=== PATIENT | male | born 1985 | race Asian ===

== ENCOUNTER 2017-04-18 18:49 | Emergency (ER) | payer MEDICAID ==
[~2017-04-18] VITALS: Ht 165.1 cm; Wt 81.8 kg
[2017-04-18 20:36] VITALS: BP 142/89
== END 2017-04-18 20:54 | disposition home or self-care (01) ==
LOC: EMS 19:08
DX: H10.89 Other conjunctivitis (principal); F15.90 Other stimulant use, unspecified, uncomplicated; F17.210 Nicotine dependence, cigarettes, uncomplicated
CPT/HCPCS: 99283